=== PATIENT | female | born 1945 | race Caucasian/White ===

== ENCOUNTER 2021-10-11 21:04 | Observation (INO) | payer MEDICARE ==
[2021-10-11] MEDS ORDERED: Nitroglycerin 0.4 MG TAB (25 Tab Bottle) SL PRN (23:35)
[2021-10-11] MEDS ORDERED: Sodium Chloride 0.9% 500 ML IV SCH (23:45)
[2021-10-11 23:58] VITALS: BMI 19.1
[2021-10-12 00:12] LABS: #Basophils 0.1 10x3/uL (0.0-0.2); #Eosinphils 0.2 10x3/uL (0.0-0.5); #Monocytes 0.4 10x3/uL (0.0-1.1); #Neutrophils 2.6 10x3/uL (1.5-8.4); %Basophils 0.9 % (0.0-2.0); %Eosinophils 3.8 % (0.0-6.0); %Lymphocytes 40.4 % (18.0-47.0); %Neutrophils 46.7 % (40.0-75.0); Hemoglobin 10.3 g/dL (12.0-15.5); Mean Corpuscular HGB CONC 31.9 g/dL (32.0-36.0); Mean Corpuscular Hemoglobin 31.3 pg (27.0-33.0); Mean Corpuscular Volume 98.2 fl (81.6-98.3); Mean Platelet Volume 11.5 fl (7.4-10.4); Platelet Count 234 10x3/uL (150-450); RBC Distribution Width 11.4 % (11.5-14.5); Red Blood Cell (RBC) Count 3.29 10x6/uL (3.90-5.03); White Blood Cell (WBC) Count 5.5 10x3/uL (3.5-10.5)
[2021-10-12 00:20] LABS: ALT (SGPT) 21 U/L (8-55); AST (SGOT) 25 U/L (5-34); Albumin 3.7 g/dL (3.4-4.8); Alkaline Phosphatase 84 U/L (40-110); Anion Gap 14 mmol/L (10-20); BUN (Urea Nitrogen) 41 mg/dL (9.8-20.1); Bilirubin, Total 0.2 mg/dL (0.2-1.2); Calc. Creatinine Clearance 27 mL/min (70-130); Calcium 9.3 mg/dL (7.8-10.44); Carbon Dioxide 21 mmol/L (23-31); Chloride 109 mmol/L (98-107); Globulin 2.4 g/dL (2.4-3.5); Glucose 124 mg/dL (83-110); Magnesium 2.3 mg/dL (1.6-2.6); Potassium 3.2 mmol/L (3.5-5.1); Protein, Total 6.1 g/dL (5.8-8.1); Sodium 141 mmol/L (136-145)
[2021-10-12 00:24] LABS: PTT 24.5 sec (22.0-33.0); Prothrombin Time 10.9 sec (9.5-12.1)
[2021-10-12 00:26] LABS: Troponin I 0.014 ng/mL (< 0.028)
[2021-10-12] MEDS: Sodium Chloride 0.9% 1,000 ML IV SCH ×2 (00:27→09:19)
[2021-10-12 03:38] LABS: Cardiac Risk 3.6 (Less than 4.5)
[2021-10-12 03:40] LABS: Troponin I 0.023 ng/mL (< 0.028)
[2021-10-12] MEDS ORDERED: Levothyroxine 150 MCG TAB PO SCH (06:00)
[2021-10-12] MEDS ORDERED: Potassium Chloride 20 MEQ TAB PO SCH ×2 (06:45→07:45)
[2021-10-12] MEDS ORDERED: Lisinopril 20 MG TAB PO SCH (09:00)
[2021-10-12] MEDS ORDERED: Aspirin Chewable 81 MG TAB PO SCH (09:00)
[2021-10-12] MEDS ORDERED: Enoxaparin Sodium 60 MG/0.6 ML SYRINGE SC SCH (09:00)
[2021-10-12] MEDS ORDERED: DULoxetine 30 MG CAP PO SCH (09:00)
[2021-10-12] MEDS ORDERED: Hydrochlorothiazide 25 MG TAB PO SCH (09:00)
[2021-10-12] MEDS: Gabapentin 100 MG CAP PO SCH ×2 (09:19→15:35)
[2021-10-12 09:22] LABS: Anion Gap 13 mmol/L (10-20); BUN (Urea Nitrogen) 31 mg/dL (9.8-20.1); Calc. Creatinine Clearance 35 mL/min (70-130); Calcium 9.4 mg/dL (7.8-10.44); Carbon Dioxide 22 mmol/L (23-31); Chloride 111 mmol/L (98-107); Glucose 104 mg/dL (83-110); Potassium 3.7 mmol/L (3.5-5.1); Sodium 142 mmol/L (136-145)
[2021-10-12 09:23] LABS: Anion Gap 12 mmol/L (10-20); BUN (Urea Nitrogen) 31 mg/dL (9.8-20.1); Calc. Creatinine Clearance 35 mL/min (70-130); Calcium 9.3 mg/dL (7.8-10.44); Carbon Dioxide 22 mmol/L (23-31); Chloride 110 mmol/L (98-107); Glucose 102 mg/dL (83-110); Potassium 3.4 mmol/L (3.5-5.1); Sodium 141 mmol/L (136-145)
[2021-10-12 12:12] LABS: Troponin I Less than 0.010 ng/mL (< 0.028)
[2021-10-12 12:19] LABS: SARS-CoV-2 NAA Rapid Test Not Detected (NotDetected)
[2021-10-12 14:01] VITALS: TEMP 99
[2021-10-12 17:30] VITALS: BP 113/63
[2021-10-13] MEDS ORDERED: Non-Formulary Medication 1 EACH (Omeprazole [Omeprazole] 40 MG Capsule.Dr) PO SCH (09:00)
[2021-10-13] MEDS ORDERED: Levothyroxine 150 MCG TAB PO SCH (09:00)
[2021-10-13] MEDS ORDERED: DULoxetine 60 MG CAP PO SCH (09:00)
[2021-10-13] MEDS ORDERED: Rosuvastatin 20 MG TAB PO SCH (21:00)
== END 2021-10-12 20:15 | disposition home or self-care (01) ==
LOC: CSHTELE 21:04
PROVIDERS: ADMIT Family Medicine; ATTEND Internal Medicine
DX: R06.00 Dyspnea, unspecified (principal); I12.9 Hypertensive chronic kidney disease with stage 1 through stage 4 chronic kidney disease, or unspecified chronic kidney disease; N18.32 Chronic kidney disease, stage 3b; Z79.899 Other long term (current) drug therapy; E89.0 Postprocedural hypothyroidism; Z20.822 Contact with and (suspected) exposure to COVID-19
CPT/HCPCS: 0241U; 71045; 71275; 80048 ×2; 80061; 83735; 83880; 84484 ×3; 85610; 85730; 93005; 93306; 96372; G0378; 36415; 80053; 84443; 85025; 93010; J1650; J7030; J7050